=== PATIENT | male | born 1970 | race American Indian/Alaskan Native ===

== ENCOUNTER 2016-12-28 00:48 | Observation (INO) | payer BC ==
--- NOTE | 2016-12-28 01:37 | ED PDOC ---
Arrival/HPI - General Time Seen by Provider: 12/28/16 00:55 Historian: Patient - History of Present Illness Narrative History of Present Illness (Text): 12/28/16 01:37 Allen Johnston is a 46 year old male, with no significant past medical history, who presents to the ED brought in by EMS status post syncopal episodes. Patient states he was sitting at a friend's house tonight when he had a syncopal episode. Patient he does not remember what happened but notes he feels fine currently. Patient denies any fever, chills, chest pain, shortness of breath, abdominal pain, headache, dizziness, or any other complaints. Time/Duration: Prior to Arrival Symptom Onset: Sudden Symptom Course: Unchanged Activities at Onset: Light Context: Home Past Medical History - Provider Review Nursing Documentation Reviewed: Yes - Past History Past History: No Previous Family/Social History - Physician Review Nursing Documentation Reviewed: Yes Family/Social History: Unknown Family HX Allergies/Home Meds Allergies/Adverse Reactions: Allergies No Known Allergies Allergy (Verified 12/28/16 04:58) Home Medications: Home Meds Medication Instructions Recorded Confirmed No Known Home Med 11/16/12 11/16/12 Review of Systems - Physician Review All systems were reviewed & negative as marked: Yes - Review of Systems Constitutional: Normal. absent: Fevers Eyes: Normal ENT: Normal Respiratory: Normal. absent: SOB Cardiovascular: Syncope. absent: Chest Pain Gastrointestinal: Normal. absent: Abdominal Pain, Diarrhea, Nausea, Vomiting Genitourinary Male: Normal. absent: Dysuria, Frequency, Hematuria, Urinary Output Changes Musculoskeletal: Normal. absent: Back Pain, Neck Pain Skin: Normal Neurological: Normal. absent: Headache, Dizziness Endocrine: Normal Hemo/Lymphatic: Normal Psychiatric: Normal Physical Exam Vital Signs Reviewed: Yes Vital Signs Temp Pulse Resp BP Pulse Ox 12/28/16 01:01 98.0 F 74 17 127/81 97 Temperature: Afebrile Blood Pressure: Normal Pulse: Regular Respiratory Rate: Normal Appearance: Positive for: Well-Appearing, Non-Toxic, Comfortable Pain Distress: None Mental Status: Positive for: Alert and Oriented X 3 - Systems Exam Head: Present: Atraumatic, Normocephalic Pupils: Present: PERRL Extroacular Muscles: Present: EOMI Conjunctiva: Present: Normal Mouth: Present: Moist Mucous Membranes Neck: Present: Normal Range of Motion. No: Meningeal Signs, MIDLINE TENDERNESS , Paraspinal Tenderness Respiratory/Chest: Present: Clear to Auscultation, Good Air Exchange. No: Respiratory Distress, Accessory Muscle Use Cardiovascular: Present: Regular Rate and Rhythm, Normal S1, S2. No: Murmurs Abdomen: Present: Normal Bowel Sounds. No: Tenderness, Distention, Peritoneal Signs Back: Present: Normal Inspection Upper Extremity: Present: Normal Inspection. No: Cyanosis, Edema Lower Extremity: Present: Normal Inspection. No: Edema Neurological: Present: GCS=15, CN II-XII Intact, Speech Normal, Motor Func Grossly Intact, Normal Sensory Function, Normal Cerebellar Funct, Memory Normal Skin: Present: Warm, Dry, Normal Color. No: Rashes Psychiatric: Present: Alert, Oriented x 3, Normal Insight, Normal Concentration Medical Decision Making ED Course and Treatment: 12/28/16 01:37 Impression: 46 year old male presents s/p syncopal episode prior to arrival. Differential Diagnosis included but are not limited to: syncope vs. seizure vs. cerebral bleed Plan: -- CT Head w/o contrast -- EKG -- CXR -- Labs, cardiac enzymes -- Reassess and disposition Progress Notes: Reviewed EKG, NSR at 69 bpm. LAHB. Lateral T wave changes. 12/28/16 03:12 Reviewed radiology, CXR shows no acute processes. 12/28/16 05:[address]: FINDINGS: Brain: No significant white matter disease. No hemorrhage. No edema. Ventricles: No hydrocephalus. A tiny cavum septum pellucidum, normal variant. Bones/joints: Unremarkable. No acute fracture. Soft tissues: Unremarkable. Sinuses: Moderate fluid, mucosal thickening of the ethmoid air cells, sphenoid sinuses, correlate with sinusitis. Mastoid air cells: Unremarkable as visualized. No mastoid effusion. IMPRESSION: No acute intracranial findings. Sinus disease. Clinical correlation and followup is recommended as clinically warranted. Dictated and Authenticated by: Sandra Murillo MD Case discussed with Dr. Duarte, who is aware and agrees with plan. Accepts pt in to her service. Pt will go to Telemetry observation for syncope. - Lab Interpretations Lab Results: 12/28/16 01:41 12/28/16 01:41 Lab Results 12/28/16 01:41: WBC 6.7, RBC 4.87, Hgb 13.4 L, Hct 40.4 L, MCV 83.0, MCH 27.5, MCHC 33.2, RDW 12.8, Plt Count 166, MPV 10.2 12/28/16 01:41: Sodium 141, Potassium 3.7, Chloride 105, Carbon Dioxide 24, Anion Gap 16, BUN 14, Creatinine 1.1, Est GFR ( Amer) > 60, Est GFR (Non- Af Amer) > 60, Random Glucose 113 H, Calcium 9.7, Total Bilirubin 0.6, AST 22, ALT 27, Alkaline Phosphatase 88, Lactate Dehydrogenase 462, Total Creatine Kinase 157, Troponin I < 0.01, Total Protein 7.7, Albumin 4.2, Globulin 3.5, Albumin/Globulin Ratio 1.2 12/28/16 01:41: PT 11.6, INR 1.07, APTT 24.7 I have reviewed the lab results: Yes - RAD Interpretation Radiology Orders: 12/28/16 01:36 HEAD W/O CONTRAST [CT] Stat 12/28/16 01:37 CHEST PORTABLE [RAD] Stat - EKG Interpretation Interpreted by ED Physician: Yes Type: 12 lead EKG - Scribe Statement The provider has reviewed the documentation as recorded by the Scribtarsha Bryson All medical record entries made by the Laneibe were at my direction and personally dictated by me. I have reviewed the chart and agree that the record accurately reflects my personal performance of the history, physical exam, medical decision making, and the department course for this patient. I have also personally directed, reviewed, and agree with the discharge instructions and disposition. Disposition/Present on Arrival - Present on Arrival Any Indicators Present on Arrival: No History of DVT/PE: No History of Uncontrolled Diabetes: No Urinary Catheter: No History of Decub. Ulcer: No History Surgical Site Infection Following: None - Disposition Have Diagnosis and Disposition been Completed?: Yes Diagnosis: Syncope Disposition: HOSPITALIZED Disposition Time: 05:26 Patient Plan: Observation Patient Problems: Current Active Problems Problem Status Onset Syncope Acute Condition: STABLE Discharge Instructions (ExitCare): Syncope (ED)
[2016-12-28 01:53] LABS: HEMOGLOBIN 13.4 gm/dL (14.0-18.0); MEAN CORPUSCULAR HEMOGLOBIN 27.5 pg (25.0-35.0); MEAN CORPUSCULAR HGB CONC 33.2 g/dl (31.0-37.0); MEAN PLATELET VOLUME 10.2 fl (7.0-11.0); RBC 4.87 10^6/uL (3.5-6.1); RED CELL DISTRIBUTION WIDTH 12.8 % (11.5-14.5); WHITE BLOOD COUNT 6.7 10^3/ul (4.5-11.0)
[2016-12-28 02:05] LABS: INR 1.07 (0.93-1.08); PARTIAL THROMBOPLASTIN TIME 24.7 Seconds (23.7-30.8); PROTHROMBIN TIME 11.6 Seconds (9.9-11.8)
[2016-12-28 02:08] LABS: ALB/GLOB RATIO 1.2 (1.1-1.8); ALBUMIN 4.2 g/dL (3.0-4.8); ALT/SGPT 27 U/L (7-56); AST/SGOT 22 U/L (15-59); BLOOD UREA NITROGEN 14 mg/dL (7-21); CALCIUM 9.7 mg/dL (8.4-10.5); GFR AFRICAN-AMERICAN > 60; GFR NON-AFRICAN AMERICAN > 60
[2016-12-28 02:51] LABS: TROPONIN I < 0.01 ng/mL
[2016-12-28 08:03] VITALS: RESP 16; O2SAT 97
[2016-12-28 09:58] LABS: HDL CHOLESTEROL 31 mg/dL (29-60)
--- NOTE | 2016-12-28 10:00 | RAD ---
HISTORY: fever COMPARISON: No prior. FINDINGS: LUNGS: No active pulmonary disease. PLEURA: No significant pleural effusion identified, no pneumothorax apparent. CARDIOVASCULAR: Normal. OSSEOUS STRUCTURES: Mild multilevel degenerative spondylosis of the thoracic spine VISUALIZED UPPER ABDOMEN: Normal. OTHER FINDINGS: None. IMPRESSION: No active disease.
[2016-12-28 10:09] LABS: LDL CHOLESTEROL 182 mg/dL (0-129)
[2016-12-28] MEDS ORDERED: Dextrose 5%/0.45% NS 1,000 ML IV SCH (10:15)
--- NOTE | 2016-12-28 10:22 | CARD ---
APPROVED REPORT EKG Measurement Heart [id number] <Conclusion> Normal sinus rhythm Possible Left atrial enlargement Left anterior fascicular block Cannot rule out Inferior infarct (masked by fascicular block?), age undetermined T wave abnormality, consider lateral ischemia Abnormal ECG
[2016-12-28 10:43] LABS: FREE T4 1.12 ng/dL (0.78-2.19)
--- NOTE | 2016-12-28 11:02 | CT ---
PROCEDURE: CT HEAD WITHOUT CONTRAST. HISTORY: syncope COMPARISON: None available. TECHNIQUE: Axial computed tomography images were obtained through the head/brain without intravenous contrast. Radiation dose: Total exam DLP = 677.45 mGy-cm. This CT exam was performed using one or more of the following dose reduction techniques: Automated exposure control, adjustment of the mA and/or kV according to patient size, and/or use of iterative reconstruction technique. FINDINGS: HEMORRHAGE: No acute parenchymal, subarachnoid or extra-axial the all all hemorrhage. BRAIN: Questionable minimal chronic periventricular white matter ischemic changes. VENTRICLES: Unremarkable. No hydrocephalus. CALVARIUM: Unremarkable. PARANASAL SINUSES: Moderate mucoperiosteal inflammatory changes seen within the ethmoid air complex extending superiorly with minor mucosal thickening in the frontal sinus. There is on mucosal thickening in the sphenoid sinus as well. Minimal mucosal thickening left maxillary antrum. Prominent adenoids. MASTOID AIR CELLS: Unremarkable as visualized. No inflammatory changes. OTHER FINDINGS: None. IMPRESSION: No acute intracranial hemorrhage. Questionable minimal chronic periventricular white matter ischemic changes. Mucoperiosteal inflammatory changes within the ethmoid frontal and sphenoid sinus. Minimal polypoid like mucosal thickening left maxillary antrum
[2016-12-28 11:34] VITALS: BMI 23.9
[2016-12-28 13:04] VITALS: BP 158/85; PULSE 76; TEMP 97.6
--- NOTE | 2016-12-28 14:36 | CP.PCM.PN ---
Subjective - Date & Time of Evaluation Date of Evaluation: 12/28/16 Time of Evaluation: 13:35 - Subjective Subjective: Patient seen at the request of his RN who stated patient has decided to leave AMA . He states he has to leave for personal reasons. Patient is alert,awake,oriented x 3, is in no clinical distress and is ambulatory. He does not want to undergo any further examinations,tests or treatment at this time,states he will follow up with his PMD as an outpatient. Patient was told of risks of leaving AMA,namely recurrence of syncope,seizures, coma,cardiac events like heart attack, cardiac arrhythmia,even . Patient stated he understands everything he is told,then signed out AMA.He was advised to return to the ER if needed. Objective - Vital Signs/Intake and Output Vital Signs (last 24 hours): Temp Pulse Resp BP Pulse Ox 97.6 F 76 16 158/85 H 97 12/28/16 12:00 12/28/16 12:00 12/28/16 12:00 12/28/16 12:00 12/28/16 08:02 - Medications Medications: Current Medications Aspirin (Aspirin Chewable) 81 mg PO DAILY [facility] Last Admin: 12/28/16 10:46 Dose: 81 mg Dextrose/Sodium Chloride (Dextrose 5%/0.45% Ns 1000 Ml) 1,000 mls @ 100 mls/hr IV .Q10H [facility] Last Admin: 12/28/16 10:46 Dose: 100 mls/hr - Labs Labs: PT 11.6 Seconds (9.9-11.8) 12/28/16 01:41 INR 1.07 (0.93-1.08) 12/28/16 01:41 APTT 24.7 Seconds (23.7-30.8) 12/28/16 01:41
--- NOTE | 2016-12-29 01:42 | HP ---
HISTORY OF PRESENT ILLNESS: The patient is a 46-year-old black male, sleepy but arousable, not very good historian, by the bedside. According to , he was with his friends who witnessed that all of a sudden passed out. He felt extremely dizzy prior to this incidence. It has never happened before. Denies any chest pain, no palpitation. There was no seizure like activity noted. No history of fever or chills, no nausea or vomiting, no diarrhea and the patient's does admit that he did not eat whole day long yesterday through this event. PAST MEDICAL HISTORY: He has no significant past medical history. ALLERGIES: He is not allergic to any medications. MEDICATIONS AT HOME: He is not on any medication at home. 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 REVIEW OF SYSTEMS: He is feeling extremely weak, tired and sleeping. PHYSICAL EXAMINATION: GENERAL: He is sleepy but arousable. VITAL SIGNS: Afebrile, pulse 76, respirations 16, blood pressure 158/85, LUNGS: Bilateral fair flow. No rhonchi or crackle. CARDIOPULMONARY: Heart: S1,S2 audible. ABDOMEN: Soft, nontender. No rebound, no guarding. NEUROLOGIC: The patient is sleepy but arousable, moves all extremities. LABORATORY DATA: WBC 6.7, hemoglobin 13.4, hematocrit 40.4, platelets of 166, PT 11.6, INR 1.07, PTT 24.7. Chemistry: Sodium 141, potassium 3.7, chloride 105, CO2 24, BUN 14, creatinine 1.1, blood sugar of 113. LFTs are within normal limits. Cholesterol 227, LDL is 182. Thyroid profile is negative. He had CT scan of the head done, negative. X-ray chest is unremarkable. Carotid Doppler was ordered, but patient refused to go for the Doppler. ASSESSMENT: 1. Seems to be probably vasovagal secondary to dehydration. 2. History of marijuana abuse. is not definite that if he has used yesterday. PLAN: The patient's urine drug screen and carotid Doppler was ordered but the patient refused to have that tested or to go for carotid Doppler. Instead, he will follow with his PMD as outpatient and since he felt better, he signed against medical advise and refused to do the rest of the workup *------* as outpatient. Giorgio Prado MD
--- NOTE | 2016-12-29 02:12 | CON ---
DATE: 12/28/2016 The patient is in room 269, bed 1. REASON FOR CONSULTATION: Syncope. HISTORY OF PRESENT ILLNESS: The patient was told two years ago that he had high blood pressure. He is not on any medication. The patient states that he was smoking cigarettes and he suddenly found him *------*. He has had similar episode happened six months ago while he finished urination in the bathroom, but he did not go to the hospital. The patient denies any chest pain, shortness of breath, nausea or vomiting associated with this episode. He denies any recent chest pains. PAST MEDICAL HISTORY: Not significant except that he was told two years ago that he had high blood pressure. PERSONAL HISTORY: Smokes about one pack a day, drinks socially, also take marijuana, smokes everyday. FAMILY HISTORY: The patient does not have coronary artery disease. MEDICATIONS AT HOME: The patient is not taking any medication. REVIEW OF SYSTEMS: All the systems are reviewed positive mentioned in the history, otherwise negative. PHYSICAL EXAMINATION VITAL SIGNS: Blood pressure 152/91, earlier blood pressure 127/81, respirations 18, pulse 63, afebrile. HEENT: Head is normocephalic. Eyes: Pupils are normal. Conjunctiva normal. NECK: JVP low. Carotid equal. Thorax, AP diameter normal. LUNGS: Clear. CARDIOVASCULAR: S1 and S2. ABDOMEN: Soft, nontender, no organomegaly. Bowel sounds are normal. EXTREMITIES: No clubbing, no cyanosis. LABORATORY DATA: Shows WBC 6.7, hemoglobin 13.4, hematocrit 40.4, platelet 166,000. Sodium 141, potassium 3.7, BUN 14, creatinine 1.1. AST and ALT are normal. Cholesterol 227, triglycerides 130, TSH 1.15. Chest x-ray, no active disease. EKG showed normal sinus rhythm, possible left renal enlargement, left anterior vesicle block, voltage criteria of LVH, *------* is also seen. CT scan of the head, no acute intracranial hemorrhage, mucoperiosteal inflammatory changes within that ethmoid frontal and alyse sinus. Minimal polypoid like mucosal thickening, left maxillary antrum. Troponin negative. Random glucose 113, cholesterol 27. TSH normal. DIAGNOSES: 1. Syncope. 2. Hypertension. 3. High cholesterol. PLAN: The patient to monitor if he show any arrhythmia. So far, the patient was advised to have echo and Cardiolite stress test, which he wants rule out. The patient does not want to stay in the hospital anymore and he says he will come as an outpatient to do echo and Cardiolite stress test. The patient also had rights to go on low cholesterol diet to lose some weight, and if cholesterol is still high, he should be on statin therapy. The patient should monitor blood pressure very closely. He was advised diet and advised to follow up. Katelyn Ortiz MD
== END 2016-12-28 14:37 | disposition left against medical advice (07) ==
LOC: ED 00:48 → ERH 05:26 → 2RNO 08:34
PROVIDERS: ADMIT Internal Medicine; ATTEND Internal Medicine
DX: E86.0 Dehydration (principal); R55 Syncope and collapse; I10 Essential (primary) hypertension; F12.10 Cannabis abuse, uncomplicated; E78.00 Pure hypercholesterolemia, unspecified; F17.210 Nicotine dependence, cigarettes, uncomplicated
CPT/HCPCS: 70450; 71010; 80053; 80061; 82550; 83615; 84439; 84443; 84484; 85027; 85610; 85730; 93005; 96360; 96361; 99285; G0378; J7042